=== PATIENT | female | born 1990 | race Caucasian/White ===

== ENCOUNTER → 2017-07-17 | Outpatient (CLI) | payer OTHER ==
[~2017-07-17] MED LIST: BARIUM SULFATE 60% 355 ML SUSP PO ONE
--- NOTE | 2017-07-17 15:02 | RAD ---
INDICATION: Abdominal pain and diarrhea for 2 years. TECHNIQUE: Small bowel series was performed. No comparison is available. FINDINGS: [employer] Supervisor film demonstrates large amount of stool in the colon. Small bowel is normal caliber without intrinsic mass or extrinsic displacement of bowel loops. Fold pattern is within normal limits. Contrast reaches the colon by 2 hours 15 minutes. Terminal ileum is probably visualized and within normal limits. IMPRESSION: Normal small bowel follow-through. Electronically signed by: Bartolo Rock MD (07/17/2017 2:58 PM) [id number]
== END | disposition home or self-care (01) ==
LOC: RAD 08:31
PROVIDERS: ATTEND Internal Medicine Gastroenterology
DX: R10.84 Generalized abdominal pain (principal); R19.7 Diarrhea, unspecified
CPT/HCPCS: 74250

== ENCOUNTER 2017-08-14 03:14 | Emergency (ER) | payer OTHER ==
[~2017-08-14] VITALS: Ht 170.2 cm; Wt 70.3 kg
[2017-08-14 03:15] VITALS: BP 115/72
--- NOTE | 2017-08-14 04:05 | ED.ADGEN ---
Adult General Chief Complaint Chief Complaint Allergic reaction HPI HPI Patient is a 26-year-old female Ignacio with nasal congestion, rhinorrhea, conjunctiva injected, difficulty swallowing and throat sore throat upon waking. Patient has a known allergy to her indoor cat and dog. Patient previously and Singulair and Faviola but was switched to Benadryl and Zyrtec by PCP earlier today. No wheezing, stridor, S pain and chest tightness. No other acute symptoms or complaints.[] Review of Systems Review of Systems Symptoms as per history of present illness. All other review symptoms are negative. All other systems were reviewed and found to be within normal limits, except as documented in this note. Current Medications Current Medications Current Medications Medications (Trade) Dose Ordered Sig/Ant Start Time Stop Time Status Last Admin Dose Admin Famotidine (Pepcid) 20 mg 1X ONCE 08/14/17 05:00 08/14/17 05:01 DC 08/14/17 04:55 20 MG Methylprednisolone Sodium Succinate (SOLU-Medrol 125MG VIAL) 125 mg 1X ONCE 08/14/17 05:00 08/14/17 05:01 DC 08/14/17 04:56 125 MG Allergies Allergies Allergies Coded Allergies Type Severity Reaction Last Updated Verified latex Allergy Unknown 07/17/17 Yes Physical Exam Physical Exam Constitutional: Well developed, well nourished, no acute distress, non-toxic appearance. [] HENT: Normocephalic, atraumatic, bilateral external ears normal, oropharynx moist, no posterior oral pharyngeal, swelling, nose normal. [] Eyes: PERRLA, EOMI, injection Injected. [] Neck: Normal range of motion, no tenderness, supple, no stridor. [] Cardiovascular:Heart rate regular rhythm, no murmur [] Neurologic: Alert and oriented X 3, normal motor function, normal sensory function, no focal deficits noted. [] Psychologic: Affect normal, judgement normal, mood normal. [] EKG EKG [] Radiology/Procedures Radiology/Procedures [] Course & Med Decision Making Course & Med Decision Making Pertinent Labs and Imaging studies reviewed. (See chart for details) [IV Solu-Medrol, and Pepcid given. Symptoms improved on re-eval ] Final Impression Final Impression [1. Acute allergic reaction] Ace Disclaimer Dragon Disclaimer This electronic medical record was generated, in whole or in part, using a voice recognition dictation system. SHRADDHA KING DO Aug 14, 2017 04:05
[2017-08-14] MEDS ORDERED: methylPREDNISolone SOD SUCC PF 125 MG/2 ML VIAL. IV ONE (05:00)
[2017-08-14] MEDS ORDERED: FAMOTIDINE 20 MG TABLET PO ONE (05:00)
== END 2017-08-14 05:35 | disposition home or self-care (01) ==
LOC: ER 03:14
DX: J30.81 Allergic rhinitis due to animal (cat) (dog) hair and dander (principal); Z91.040 Latex allergy status; X58.XXXA Exposure to other specified factors, initial encounter
CPT/HCPCS: 96374; 99284; J2930

== ENCOUNTER → 2017-08-21 | Outpatient (CLI) | payer OTHER ==
[2017-08-14 03:15] VITALS: BP 115/72
--- NOTE | 2017-08-21 15:44 | RAD ---
Pelvic ultrasound, 08/21/2017: HISTORY: Pelvic pain Transabdominal and transvaginal scans were obtained. The uterus measures 9.8 x 6.3 x 5.2 cm. There is a rounded 3.5 cm mildly heterogeneous, nearly isoechoic mass in the myometrium posteriorly. This is probably a uterine fibroid. It mildly distorts the central uterine echo complex. This intrauterine echo complex measures 6 mm in greatest AP dimension. The ovaries are of normal size. Both ovaries contain small follicular cysts. The largest of these on the left measures 1.5 cm. There is blood flow in both ovaries. No adnexal mass is seen. A trace amount of free fluid is present in the pelvis. IMPRESSION: 1. Small uterine mass most likely representing a fibroid. 2. Trace amount of free fluid in the pelvis. This amount of fluid can be on a physiologic basis. Electronically signed by: Tex Partida MD (08/21/2017 3:42 PM) [facility]
== END | disposition home or self-care (01) ==
LOC: US 09:43
PROVIDERS: ATTEND Nurse Practitioner Family
DX: N85.8 Other specified noninflammatory disorders of uterus (principal); N83.292 Other ovarian cyst, left side; N83.291 Other ovarian cyst, right side
CPT/HCPCS: 76830; 76856